=== PATIENT | male | born 1975 | race Caucasian/White ===

== ENCOUNTER → 2016-09-25 | Outpatient (CLI) | payer OTHER | END | disposition home or self-care (01) | LOC: RAD 11:26 | DX: R07.89 Other chest pain (principal); R06.02 Shortness of breath ==

== ENCOUNTER → 2018-03-18 | Outpatient (CLI) | payer BC | END | disposition home or self-care (01) | LOC: ORTHO 02:30 | DX: M25.512 Pain in left shoulder (principal) ==

== ENCOUNTER 2022-06-06 20:34 | Emergency (ER) | payer SELFPAY ==
[~2022-06-06] VITALS: Ht 182.8 cm; Wt 83.9 kg
== END 2022-06-06 23:08 | disposition home or self-care (01) ==
LOC: ED 20:34
DX: H16.002 Unspecified corneal ulcer, left eye (principal)